=== PATIENT | male | born 1970 | race Caucasian/White ===

== ENCOUNTER → 2019-02-06 | Outpatient (CLI) | payer BC ==
--- NOTE | 2019-02-06 14:48 | PCVCIMAG ---
APPROVED REPORT Study performed: 02/06/2019 13:41:22 Exam: Stress Echocardiogram Indication: Dyspnea, palpitations Patient Location: Echo lab Stress Nurse: Tori Jain RN Status: routine Ht: 5 ft 9 in HR: 67 bpm BP: 120/90 mmHg Rhythm: NSR Procedure The patient underwent an Exercise Stress Test using the Luigi Protocol. Blood pressure, heart rate, and EKG were monitored. An Echocardiogram was performed by avionic technician in four stages in quad fashion. At peak stress, four selected images were obtained and placed side by side with resting images for comparison. Stress Test Details Stress Test: Exercise stress testing was performed using a Luigi protocol. HR Resting HR: 67 bpmMax Heart Rate (APMHR): 172 bpm Max HR Achieved: 173 bpmTarget HR (85% APMHR): 146 bpm % of APMHR: 100 Recovery HR: 112 bpm HR response to stress: Normal HR response to stress BP Resting BP: 120/90 mmHg Max BP: 200/88 mmHg Recovery BP: 132/72 mmHg BP response to stress: Normal blood pressure response to stress. ECG Resting ECG: Sinus Rhythm Stress ECG: Sinus Rhythm ST Change: Normal Maximum ST Deviation: 0 mm Arrhythmia: occasional PVCs Recovery ECG: Sinus Rhythm Recovery ST Change: Normal Recovery ST Deviation: 0 mm Recovery Arrhythmia: None Clinical Reason for Termination: Maximal effort Stress Symptoms: fatigue Exercise duration: 12 min sec Highest Stage Achieved: Stage 4: 4.2 mph at 16% grade. Exercise capacity: 13.7 METs Overall Exercise Capacity for Age: Normal Scale: Sedentary Angina Score: None Stress ECG Conclusion Clinical: Non-ischemic ECG: Non-ischemic [place] Treadmill Score is 12.0 which is Low risk. Pre-Stress Echo The resting Echocardiogram showed normal left ventricular contractility with an estimated Ejection Fraction of about >55%. Post-Stress Echo The stress Echocardiogram showed normal left ventricular contractility with an estimated Ejection Fraction of about 65%. Conclusion Clinical Response: Non-ischemic Exercise Capacity: Average Stress ECG Response: Non-ischemic Stress Echo Images: Non-ischemic The left ventricle is normal in size and wall thickness in both the rest and stress images. Normal color doppler. No regurgitation or stenosis present on pulmonic and aortic valves. Mild mitral regurgitation. Mild tricuspid regurgitation with PAP of 32 mmHg. Normal stress echocardiogram with maximal exercise stress. Other Information Study Quality: Adequate <Conclusion> The left ventricle is normal in size and wall thickness in both the rest and stress images. Normal color doppler. No regurgitation or stenosis present on pulmonic and aortic valves. Mild mitral regurgitation. Mild tricuspid regurgitation with PAP of 32 mmHg. Normal stress echocardiogram with maximal exercise stress.
== END | disposition home or self-care (01) ==
LOC: PCVCIMAG 13:47
PROVIDERS: ATTEND Internal Medicine
DX: I08.1 Rheumatic disorders of both mitral and tricuspid valves (principal); R00.2 Palpitations; R06.09 Other forms of dyspnea
CPT/HCPCS: 93325; 93351